=== PATIENT | female | born 1985 | race African-American/Black ===

== ENCOUNTER 2017-05-27 07:50 | Emergency (ER) | payer OTHER ==
[~2017-05-27 07:50] MED LIST: IBUP600 PO; PERI8.6T PO; PREN0.01 PO
[2017-05-27 07:56] VITALS: BP 148/82; PULSE 72; RESP 16; TEMP 98.7; O2SAT 100
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
[2017-05-27] MEDS ORDERED: LORazepam 1 MG TAB PO ONE (08:15)
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
[2017-05-27] MEDS ORDERED: ACETAMINOPHEN/HYDROcodone 325 MG/5 MG TAB PO ONE (12:15)
[2017-05-27] MEDS ORDERED: NORC5TAB PO (12:49)
[2017-05-27] MEDS ORDERED: CYCL5TAB PO (13:35)
[2017-05-27 13:39] VITALS: BP 126/72; PULSE 70; RESP 16; O2SAT 99
== END 2017-05-27 13:44 | disposition home or self-care (01) ==
LOC: NEPE 07:50
DX: M54.2 Cervicalgia (principal); R20.0 Anesthesia of skin; V49.49XA Driver injured in collision with other motor vehicles in traffic accident, initial encounter
CPT/HCPCS: 71010; 72125; 72141; 99284; 99285; L0150